=== PATIENT | female | born 1980 | race Two or more races ===

== ENCOUNTER 2023-11-12 01:24 | Emergency (ER) | payer OTHER ==
[~2023-11-12] VITALS: Ht 177.8 cm; Wt 88.6 kg
[2023-11-12 01:30] VITALS: BP 144/80; PULSE 77; RESP 18; TEMP 98.3
[2023-11-12] MEDS ORDERED: AMOX500C2 PO (02:18)
[2023-11-12] MEDS: AMOXICILLIN TRIHYDRATE 250 MG CAPSULE PO ONE (02:20)
[2023-11-12] MEDS: NEOMYCIN/POLYMYXIN B/HYDROCORT 10 ML OTIC SUSPENSION AD ONE (02:20)
== END 2023-11-12 02:32 | disposition home or self-care (01) ==
LOC: EMS 01:24
DX: H60.91 Unspecified otitis externa, right ear (principal)
CPT/HCPCS: 99283

== ENCOUNTER 2024-02-20 21:30 | Emergency (ER) | payer OTHER ==
[~2024-02-20] VITALS: Ht 406.4 cm; Wt 90.9 kg
[~2024-02-20 21:30] MED LIST: AMOX500C2 PO
[2024-02-20 21:44] VITALS: BP 129/76; PULSE 83; RESP 20; TEMP 98.2; O2SAT 99
[2024-02-21] MEDS ORDERED: AMOX500C2 PO (00:13)
[2024-02-21] MEDS ORDERED: IBUP-1492 PO (00:13)
== END 2024-02-21 01:12 | disposition home or self-care (01) ==
LOC: EMS 21:30
DX: H66.91 Otitis media, unspecified, right ear (principal)
CPT/HCPCS: 99283; Z7502